=== PATIENT | male | born 1965 | race Caucasian/White ===

== ENCOUNTER → 2023-01-03 16:10 | Outpatient (BNVA) | payer BC, MEDICAID, SELFPAY | PROVIDERS: Family Provider Nurse Practitioner; PCP Nurse Practitioner; Visit Provider Family Medicine | DX: I10 Essential (primary) hypertension (principal); G62.9 Polyneuropathy, unspecified; J44.9 Chronic obstructive pulmonary disease, unspecified; Z23 Encounter for immunization | CPT/HCPCS: 80053; 80061; 82607; 82746; 83036; 85025; G0103 ==

== ENCOUNTER 2023-05-19 15:46 | Outpatient (CLI) | payer BC, MEDICAID, SELFPAY ==
--- NOTE | 2023-05-19 16:31 | CT_ITS ---
WS: [id number] CT NECK TECHNIQUE: Contrast-enhanced CT of the neck with coronal and sagittal reformatted images. CLINICAL INFORMATION: RIGHT SIDED NECK MASS AND PAIN COMPARISON: None. DLP: [id number] scans at [facility] use at least one of these dose optimization techniques: automated e xposure control; mA and/or kV adjustment per patient size (includes targeted exams where dose is matc hed to clinical indication); or iterative reconstruction. FINDINGS: Palpable marker overlying the RIGHT dorsal upper neck. Just inferior to the palpable marker is a slightly prominent lymph node measuring 7 mm. This is nonspecific but may be reactive. No other suspicious lesions in this area. Mastoid air cells are well aerated. Mucosal thickening in the ethmoid air cells with scattered fluid. Small amount of fluid in the LEFT maxillary sinus. Normal posterior nasopharynx. Normal parapharynge al fat. Normal parotid glands. Normal submandibular glands. Normal [place] tonsils with a few tonsil lar calcifications. Normal parapharyngeal fat. Normal posterior nasopharynx. No evidence of supraglot tic or glottic mass. Normal subglottic airway. Lung apices are well aerated. Normal thyroid gland. Cavernous carotid calcification partially visuali zed. Mild carotid bulb calcification. No cervical lymphadenopathy. Mild spondylitic changes cervical spine. Disc space narrowing worse at C 5-6. IMPRESSION: 1. Palpable marker overlying the RIGHT dorsal upper neck. Just inferior to the palpable marker is a slightly prominent lymph node measuring 7 mm. This is nonspecific but may be reactive. No other suspi cious lesions in this area. 2. Normal salivary glands. 3. No evidence of supraglottic or glottic mass. 4. No cervical lymphadenopathy. 5. Thyroid gland appears normal. 6. Mild spondylitic changes cervical spine. 7. Mild sinusitis in the paranasal sinuses described above. 8. No other acute findings.
[2023-05-19] MEDS: iohexol 350 mg/mL 500 mL Btl (per mL) IV (16:38)
== END 2023-05-19 15:47 | disposition home or self-care (01) ==
LOC: RAD 15:47
PROVIDERS: Family Provider Nurse Practitioner; PCP Family Medicine; Visit Provider Family Medicine
DX: M54.2 Cervicalgia (principal); R22.1 Localized swelling, mass and lump, neck; M47.812 Spondylosis without myelopathy or radiculopathy, cervical region
CPT/HCPCS: 70491; Q9967

== ENCOUNTER → 2024-05-16 15:41 | Outpatient (BNVA) | payer SELFPAY | PROVIDERS: Family Provider Nurse Practitioner; PCP Family Medicine; Visit Provider Nurse Practitioner | DX: I10 Essential (primary) hypertension (principal) | CPT/HCPCS: 80053; 80061 ==